=== PATIENT | female | born 1985 | race Caucasian/White ===

== ENCOUNTER 2021-08-21 10:34 | Emergency (ER) | payer BC, SELFPAY ==
--- NOTE | ~2021-08-21 | CT_ITS ---
EXAMINATION: CT abdomen pelvis wo con DATE: 08/21/2021 14:42 INDICATION: Left flank pain. TECHNIQUE: Computed tomography (CT) of the abdomen and pelvis was performed without intravenous contr ast. Automated exposure control and iterative reconstruction technique were employed. The dose-length product was 178.53 mGy-cm. COMPARISON: CT abdomen and pelvis 08/08/2021 FINDINGS: The visualized portions of the lung bases demonstrate a 5 mm nodule in right lower lobe, li marilee benign. No pleural effusion. The heart size is normal. No pericardial effusion. The liver, gallb ladder, spleen, pancreas, and adrenal glands are normal. There are 4 stones in right kidney measuring up to 6 mm. There are 5 stones in left kidney measuring up to 5 mm. There is moderate left hydroneph rosis and hydroureter. There is an 8 mm stone at left ureterovesicular junction. There are no dilated loops of bowel. The appendix is normal. There are no pathologically enlarged lymph nodes. There is n o free intraperitoneal fluid. There is a supraumbilical ventral hernia containing fat. There is a wid emouthed periumbilical ventral hernia containing a wall of nonobstructed colon. There is mild lumbar spondylosis. IMPRESSION: 1. 8 mm stone at left ureterovesicular junction with moderate left hydronephrosis and hydroureter. 2. Bilateral nonobstructing kidney stones. Reviewed, dictated and finalized at location A. ND HOST/HOSTESS IMPRESSION: 1. 8 mm stone at left ureterovesicular junction with moderate left hydronephros is and hydroureter. 2. Bilateral nonobstructing kidney stones.
--- NOTE | ~2021-08-21 | XR_ITS ---
EXAMINATION: XR abdomen/kub 1V DATE: 08/21/2021 13:31 INDICATION: Ureterolithiasis TECHNIQUE: A supine view of the abdomen was obtained. COMPARISON: 06/09/2012 FINDINGS: Bilateral nephrolithiasis with at least 4 stones the largest measuring up to 6 mm at the right kidney and at least 3 stones the largest measuring 3 mm at the left kidney. 7 mm ovoid calcification in the deep left hemipelvis which could represent a phlebolith, bladder stone or distal left ureteral stone . A couple unchanged slightly more caudal 1-2 mm phleboliths in the left hemipelvis. Unremarkable bow el gas pattern. IMPRESSION: 1. Bilateral nephrolithiasis and possible additional 7 mm stone either in the bladder or distal most left ureter. Reviewed, dictated and finalized at location B. AD RECEIVER IMPRESSION: 1. Bilateral nephrolithiasis and possible additional 7 mm stone either in the b ladder or distal most left ureter.
[2021-08-21 10:53] VITALS: BP 157/95; PULSE 100; RESP 18; TEMP 36.7; O2SAT 100
[2021-08-21 12:36] VITALS: BP 135/98; PULSE 95; RESP 16; TEMP 36.3; O2SAT 99
--- NOTE | 2021-08-21 13:19 | ED.FEMALEGU ---
HPI - Female Genitourinary General Chief complaint: Urogenital-Female Stated complaint: Rosana stone pain Time Seen by Provider: 08/21/21 12:43 Source: patient Mode of arrival: ambulatory Limitations: no limitations History of Present Illness HPI Narrative: This is a 35 year old female that presents to the ER for left flank pain ongoing for about 2 weeks. Reports she was diagnosed with a large ureteral stone at [facility]. Was told to follow-up with urology at [place]. She had an appointment for surgery to have the stone removed in 5 days. Reports her procedure was canceled. She also had an appointment with Dr. Alexander yesterday, but she canceled it before her lithotripsy was canceled. She has seen Dr. Alexander in the past for kidney stones. Reports over the last couple of days she has had chills, nausea, vomiting, dysuria. Denies fever or hematuria. Related Data Home Medications Medication Instructions Recorded Confirmed tamsulosin 0.4 mg PO DAILY 08/21/21 08/21/21 Allergies Allergy/AdvReac Type Severity Reaction Status Date / Time nifedipine Allergy Severe Dizziness Verified 08/21/21 15:39 nitrofurantoin Allergy hives Verified 08/21/21 15:39 penicillin G Allergy fever Verified 08/21/21 15:39 hydrocodone AdvReac Nausea and Verified 08/21/21 15:42 Vomiting Review of Systems Review of Systems: CONSTITUTIONAL: Denies fever GASTROINTESTINAL: Reports abdominal pain, nausea, vomiting GENITOURINARY: Reports dysuria. Denies hematuria. All systems reviewed & are unremarkable except as noted in HPI and below PMFSH Past Medical History Medical History (Updated 08/21/21 @ 16:51 by Rachel Hicks PA-C) Kidney stones Surgical History Surgical History (Updated 08/21/21 @ 16:01 by Belia Martin APRN) History of hysterectomy Social History Social History Smoking status: Never smoker Alcohol intake: current Alcohol use details: ONE DRINK PER MONTH Living arrangements: with family Spiritual care concerns: No Exam Narrative: GENERAL: Well-appearing, well-nourished, and in no acute distress. HEAD: Normocephalic, atraumatic. EYES: EOMI. CHEST: Clear to auscultation. No respiratory distress. No wheezes rales or rhonchi HEART: Regular rate and rhythm. No murmur heard. Normal peripheral pulses. ABDOMEN: Soft, nontender, nondistended, normal active bowel sounds. Left sided CVA tenderness EXTREMITIES: Normal range of motion. No edema. SKIN: Warm, dry, no rash. NEURO: No focal deficits. Alert and oriented x3. PSYCH: Normal mood and affect Course Consultations Consultation #1: Spoke with urology about patient work-up. If patient's pain is controlled may discharge home. Patient will be scheduled for procedure in the morning outpatient. Would like rapid COVID test ordered. Date: 08/21/21 Time: 15:00 Vital Signs Vital signs: Vital Signs Temperature 98.1 F 08/21/21 10:53 Pulse Rate 100 08/21/21 10:53 Respiratory Rate 18 08/21/21 10:53 Blood Pressure 157/95 H 08/21/21 10:53 Pulse Oximetry 100 08/21/21 10:53 Temperature 97.3 F L 08/21/21 12:36 Pulse Rate 95 08/21/21 12:36 Respiratory Rate 16 08/21/21 12:36 Blood Pressure 135/98 H 08/21/21 12:36 Pulse Oximetry 99 08/21/21 12:36 MDM - Female Genitourinary MDM Narrative Medical decision making narrative: Patient presents to the emergency department for left flank pain ongoing over the last couple weeks. Known history of large left ureteral stone. Was scheduled for an outpatient procedure with a [place] urologist. This was canceled. She presented today for worsening pain and vomiting. She is afebrile and nontoxic-appearing. CBC is without leukocytosis. Metabolic panel with evidence of some dehydration. Patient hydrated with IV fluids in the ED. UA without overt evidence of infection. This will be sent for culture. Lactic acid is not elevated.
[2021-08-21] MEDS: SODIUM CHLORIDE 0.9% IV 1,000 ML 999 ML IV CONT (13:40)
[2021-08-21] MEDS: ONDANSETRON INJ 4 MG/2 ML VIAL IV PUSH (13:46)
[2021-08-21 13:54] LABS: Basophils Absolute Auto 0.1 K/mm3 (0.0-0.1); Basophils Percent Auto 0.9 % (0.2-1.2); Eosinophils Absolute Auto 0.2 K/mm3 (0-0.3); Eosinophils Percent Auto 2.4 % (0-4.4); Hematocrit 41.4 % (37.0-47.0); Hemoglobin 13.9 g/dL (12.0-15.0); Immature Granulocyte Absolute 0.08 K/mm3 (0.00-0.031); Lymphocytes Absolute Auto 1.42 K/mm3 (0.9-3.2); Lymphocytes Percent Auto 17.8 % (18.3-44.2); Mean Corpuscular HGB Conc 33.6 g/dl (32-36); Mean Corpuscular Hemoglobin 28.1 pg (26-34); Mean Corpuscular Volume 83.8 fl (80-100); Mean Platelet Volume 10.4 fl (7.4-10.4); Monocytes Absolute Auto 0.4 K/mm3 (0.1-0.6); Monocytes Percent Auto 4.9 % (2.6-8.5); Neutrophils Absolute Auto 5.8 K/mm3 (1.3-6.7); Platelet Count Result 291 k/mm3 (150-375); Red Blood Count 4.94 M/mm3 (4.2-5.4); Red Cell Distribution Width 12.6 % (11.5-14.5)
[2021-08-21 14:04] LABS: Add Urine Microscopic? YES; Appearance Urine Clear (Clear); Bacteria Urine Trace /hpf; Bilirubin Urine Negative (Negative); Blood Urine 1+ (Negative); Color Urine Yellow (Yellow); Glucose Urine UA Negative (Negative); Ketones Urine Negative (Negative); Leukocyte Esterase Ur Negative LEU/UL (Negative); Nitrate Urine Negative (Negative); Protein Urine Negative (Negative); Specific Grav Ur 1.015 (1.001-1.035); Squamous Epithelial Cell Urine Moderate /hpf (Few); Urobilinogen Urine Negative mg/dL (<2.0)
[2021-08-21 14:11] LABS: Lactic Acid Reflex 0.7 mmol/L (0.7-2.1)
[2021-08-21 14:15] LABS: Anion Gap 12 mmol/L (8-16); Blood Urea Nitrogen 18 mg/dL (7-17); CRP 2.1 mg/dL (<1.0); Calcium 10.3 mg/dL (8.4-10.2); Carbon Dioxide 25 mmol/L (22-30); Chloride 100 mmol/L (98-107); Estimated CRCL calculation 42 ml/min; Estimated Glomerular Filt Rate 51; Glucose 96 mg/dL (65-110); Potassium 4.5 mmol/L (3.4-5.0); Sodium 137 mmol/L (137-145)
[2021-08-21] MEDS: MORPHINE SULFATE (*CRX) 2 MG/ML INJ IV PUSH (14:31)
[2021-08-21] MEDS: KETOROLAC 30 MG/ML VIAL (*BKC) IV PUSH (15:50)
[2021-08-21 17:20] VITALS: BP 116/80; PULSE 88; RESP 16; O2SAT 100
[2021-08-21 17:22] LABS: EDCOVIDSCREEN Negative (Negative)
== END 2021-08-21 17:20 | disposition home or self-care (01) ==
PROVIDERS: Physician Assistant; Emergency Provider Emergency Medicine; PCP Nurse Practitioner Family
DX: N13.2 Hydronephrosis with renal and ureteral calculous obstruction (principal); Z20.822 Contact with and (suspected) exposure to COVID-19
CPT/HCPCS: 36415; 74018; 74176; 80048; 81001; 81025; 83605; 85025; 86140; 87040; 87086; 87426; 96365; 96375; 99284; C9803; J0131; J1885; J2270; J2405; J7030

== ENCOUNTER 2021-08-22 01:33 | Day surgery (SDC) | payer BC, SELFPAY ==
--- NOTE | 2021-08-21 15:45 | WPDURCON ---
Assessment and Plan Assessment and plan (1) Kidney stones: Code(s): N20.0 - Calculus of kidney Status: Acute Assessment and Plan: No intervention at this time. Will plan lithotripsy in the future. (2) Left ureteral stone: Code(s): N20.1 - Calculus of ureter Status: Acute Assessment and Plan: Plan to do a cystoscopy, left ureteroscopy with stone extraction, possible left stent placement, left retrograde pyelogram, possible holmium laser tomorrow as an outpatient with Dr. Beck. Ok to discharge home with Torodol or Ibuprofen PRN tonight. NPO after midnight. Swab for rapid covid test today in preparation for surgery. Urology Consult Note HPI Date Seen: 08/21/21 Requesting Physician: Randal Beck MD Primary Care Provider: Belia Roche, [facility]- Consult Narrative Narrative: Narcisa Blanca is a 35 year old female who presented to the ER today for continued LLQ pain and left flank pain, dysuria, nausea and vomiting that started two weeks ago. She was diagnosed initially for an 8mm left UPJ stone that was seen on CT at [facility] in [place]. She then went to see a Urologist at [facility] who scheduled her for a lithotripsy on Wednesday next week. Unfortunately, d/t COVID restrictions, her lithotripsy was cancelled at [place]. Her pain then become worse overnight and she came back to the ER today. She is 16 weeks s/p delivery of her third child with a hysterectomy as well. She had a KUB here to confirm placement of stone, but it wasn't well identified. A CT scan was then done showing significant movement of the stone to the left UVJ. Her WBC is 8.0, creatinine is 1.20 and UA isn't suggestive of a UTI, but a culture was sent. She has a history of kidney stones and is a previous patient of Dr. Hickman from >5 years ago. She has non obstructive bilateral renal stones also seen on KUB/CT. Review of Systems Cardiovascular: Cardiovascular: Denies chest pain Respiratory: Respiratory: Reports no additional respiratory complaints Gastrointestinal: Gastrointestinal: Reports abdominal pain, Reports nausea and Reports vomiting Genitourinary: Genitourinary: Denies hematuria, Reports dysuria, Denies pelvic pain, Reports flank pain and Denies urinary urgency [facility] Past Medical History Medical History (Updated 08/21/21 @ 16:02 by Belia Martin APRN) Kidney stones Surgical History Surgical History (Updated 08/21/21 @ 16:01 by Belia Martin APRN) History of hysterectomy Social History Social History Smoking status: Never smoker Alcohol intake: current Alcohol use details: ONE DRINK PER MONTH Living arrangements: with family Spiritual care concerns: No Meds Home Medications and Allergies Home Medications Medication Instructions Recorded Confirmed Type tamsulosin 0.4 mg PO DAILY 08/21/21 08/21/21 History Allergies Allergy/AdvReac Type Severity Reaction Status Date / Time nifedipine Allergy Severe Dizziness Verified 08/21/21 15:39 nitrofurantoin Allergy hives Verified 08/21/21 15:39 penicillin G Allergy fever Verified 08/21/21 15:39 hydrocodone AdvReac Nausea and Verified 08/21/21 15:42 Vomiting Exam Resp: Effort & Inspection: normal respiratory effort Cardio: Rate: regular rate GI: GI Palp: Yes Soft to palpation and Yes Tenderness to palpation present (GI) (LLQ) : General: Yes CVA tenderness on the left Extrem: General: no edema
[2021-08-21 15:53] VITALS: BMI 25.7
--- NOTE | 2021-08-21 16:02 | PC.NURSE ---
Report to the Outpatient Waiting Room, entrance under the green pavilion located off [facility], at time ___914____ on date __08/22/21 . OR Time: __1114 . - You and your visitor will be asked a series of questions to screen for COVID 19 for your protection. - A mask is required within the hospital. - Only one visitor is allowed at this time. Patient visitors will be guided where to wait when not with patient. Preoperative COVID Testing Requirements: No COVID Test needed if: (proof is required; if not received patient will have Rapid Test prior to entry) - Patient has received COVID Vaccine at least 14 days prior to procedure date or - Patient has positive COVID test result within last 90 days of surgery date. COVID Test needed if above criteria is not met If not COVID vaccinated a COVID test must be conducted within 72 hours of surgery and patient is asked to isolate self from time of testing until procedure. You will go to the [facility] for your COVID testing. The [facility] site is located at the corner of [address] [facility]. You will only be called if COVID results are positive and your surgeon may reschedule your elective surgery date. Patients may have clear liquids (water, carbonated beverages, clear teas, apple juice) until 3 hours prior to surgery with a maximum of 20 ounces. - No food from midnight until time of surgery - Infants may have breast milk until 4 hours before surgery, infant formula 6 hours prior to surgery. - Children will be allowed to drink immediately following surgery. If applicable, please bring a bottle or sippy cup to assist with drinking. Juice, water, soda, and popsicles are readily available. For infants on formula, please bring formula the day of surgery. Pacifiers are allowed. Take the following medications with a SIP of water the morning of surgery: ___NONE Medications to discontinue per physician NONE Date to take last dose Please no make-up, nail costa rican, hairspray, perfume, deodorant, or body powder the day of surgery. No jewelry (including any body piercings) or valuables the day of surgery, leave them at home. Please take a shower or bath the night before, or the morning of, surgery with an antibacterial soap. Wear comfortable, loose fitting clothing. Children are encouraged to wear pajamas. - Jewelry must be removed prior to entering the operating room. Rings and piercings that are not removed may be cut off. - The hospital will not accept responsibility for valuables. - Please leave all valuables, including medications, at home the day of surgery. If you are going home after surgery, a licensed hazmat cdl driver must drive you home. - NO public transportation without another adult. - We recommend that an adult stay with you for 24 hours following discharge. - We also recommend that you do not drive, make important decision, drink alcoholic beverages, or take any drugs that were not prescribed by your health care provider for at least 24 hours after your discharge time. For Pediatric surgeries, we recommend two adults accompany the child home (only one inside the building at this time). Follow any additional instructions given to you from your surgeon. Telephone instructions given to _PATIENT and asked if any additional questions and then verbalized understanding. Patient advised to call surgeon office or pre surgery nurse liaison [phone] if any additional questions.
[2021-08-22] VITALS (8 sets, daily range): BP systolic 106–132; BP diastolic 70–86; PULSE 60–87; RESP 12–19; TEMP 36.1–37.1; O2SAT 98–100
--- NOTE | ~2021-08-22 | XR_ITS ---
EXAMINATION: XR retrograde pyelo w/stent LT DATE: 08/22/2021 12:17 INDICATION: Left ureteral stone TECHNIQUE: 9 fluoroscopic images of the abdomen and pelvis were obtained during procedure performed arron Beck. Radiologist was not present for the imaging or procedure. The amount of fluoroscopy vincent e used during this procedure was 0.9 minutes. COMPARISON: CT dated 08/21/21 FINDINGS: The stone at the left ureterovesicular junction is clearly visible on the initial income tax administrator image as is a second prominent stone at the mid right kidney. Subsequent images demonstrate cannulation of the lef t ureter with retrograde contrast injection into the proximal left ureter demonstrating persistent mi ld to moderate left hydronephrosis. Final image demonstrates placement of a left internal ureteral st ent with proximal tip within a lower pole calyx of the left kidney and with distal loop formed in the bladder. The stone previously seen at the ureterovesicular junction is no longer visible on the tia l images and has likely been extracted. IMPRESSION: 1. Extraction of a stone at the left ureterovesicular junction and placement of a left internal urete ral stent in expected position. Reviewed, dictated and finalized at location B. ENVIRONMENTAL ENGINEER IMPRESSION: 1. Extraction of a stone at the left ureterovesicular junction and placement of a left internal ureteral stent in expected position.
--- NOTE | 2021-08-22 06:49 | PM.HPGS ---
History of Present Illness History of Present Illness Consent: Risks, benefits, and alternatives have been discussed and questions answered. Patient agrees to proceed with procedure. Chief complaint: left ureteral stone Narrative: Narcisa Blanca is a 35 year old female who has had intermittent left flank pain for approximately 1 week. Reportedly outside imaging previously showed an 8 mm stone in her left proximal ureter. she was scheduled for ESWL in an outside facility next week but came to the ER at [facility] with intractable, recurrent left flank pain. Follow-up imaging showed the stone had progressed to her left UVJ. After discussion of options she has elected for left ureteroscopy with laser lithotripsy, stone extraction and possible stent placement. Review of Systems Cardiovascular: Cardiovascular: Denies chest pain, Denies lightheadedness, Denies palpitations and Denies dyspnea Respiratory: Respiratory: Denies dyspnea Gastrointestinal: Gastrointestinal: Denies diarrhea, Denies nausea and Denies vomiting Genitourinary: Genitourinary: Denies hematuria and Denies dysuria Endocrine: Endocrine: Denies palpitations [facility] Past Medical History Medical History Kidney stones Surgical History Surgical History History of hysterectomy Social History Social History Smoking status: Never smoker Alcohol intake: current Alcohol use details: ONE DRINK PER MONTH Living arrangements: with family Spiritual care concerns: No Meds Home Medications and Allergies Home Medications Medication Instructions Recorded Confirmed Type tamsulosin 0.4 mg PO DAILY 08/21/21 08/21/21 History Allergies Allergy/AdvReac Type Severity Reaction Status Date / Time nifedipine Allergy Severe Dizziness Verified 08/21/21 15:39 nitrofurantoin Allergy hives Verified 08/21/21 15:39 penicillin G Allergy fever Verified 08/21/21 15:39 hydrocodone AdvReac Nausea and Verified 08/21/21 15:42 Vomiting Exam Const: General: no acute distress Resp: Effort & Inspection: normal respiratory effort GI: Inspection: non-distended GI Palp: No abdominal tenderness and No Guarding due to palpation present (GI) Auscultation: normal bowel sounds Assessment and Plan Assessment and plan (1) Left ureteral stone: Code(s): N20.1 - Calculus of ureter Status: Acute Assessment and Plan: cystoscopy, left ureteroscopy with possible laser lithotripsy and stone extraction, possible left ureteral stent placement
--- NOTE | 2021-08-22 06:51 | WPDHPUPDATE1 ---
History and Physical Update Update Date/Time: 08/22/21 06:51 History and Physical has been reviewed, including an updated exam of the patient. There are NO changes in the patient's condition. Risks, benefits, and alternatives have been discussed and questions answered. Patient agrees to proceed with procedure.
[2021-08-22] MEDS: LACTATED RINGERS 1,000 ML 30 ML IV CONT ×2 (10:19→12:43)
--- NOTE | 2021-08-22 11:17 | WPDANESEPPF ---
Anes - Initial Pre Proc Eval Procedure: Operation Date: 08/22/21 11:15 Proposed Procedures p Cystoscopy, Left Ureteroscopy, Left Retrograde Pyelogram, Left Stone Extraction, Possible Left Stent Placement, - Randal Beck MD s Possible Holmium Laser Procedure - Randal Beck MD Date/Time: 08/22/21 11:17 Surgeon: Randal Beck MD Pre Op Diagnosis: left ureteral stone Patient Data Age: 35 Gender: F Height: 1.52 m Weight: 59.2 kg Last Vital Signs Temp 37.1 C 08/22/21 09:26 Pulse 83 08/22/21 09:26 Resp 16 08/22/21 09:26 BP 132/74 08/22/21 09:26 Pulse Ox 100 08/22/21 09:26 Allergies Allergy/AdvReac Type Severity Reaction Status Date / Time nifedipine Allergy Severe Unknown Verified 08/22/21 09:53 nitrofurantoin Allergy Intermediate hives Verified 08/22/21 09:53 penicillin G Allergy Intermediate Hives Verified 08/22/21 09:53 Home Medications Medication Instructions Recorded Confirmed Type tamsulosin 0.4 mg PO DAILY 08/21/21 08/22/21 History Patient hx anesthesia problems: post op nausea/vomiting Family hx anesthesia problems: none Results Review: All pre-operative results and documents have been reviewed as part of the pre-operative evaluation. [facility] Past Medical History Medical History Kidney stones Surgical History Surgical History History of hysterectomy Social History Social History Smoking status: Never smoker Alcohol intake: current Alcohol use details: ONE DRINK PER MONTH Living arrangements: with family Spiritual care concerns: No Anes - Eval Final PreProcedure Day of Procedure 08/22/21 11:17 Patient weight: normal Heart: regular rate and rhythm Lungs: clear to auscultation Airway: Mallampati scale class II Neurological: alert and oriented Last oral intake: >/= 8 hours ASA classification: I Emergent: no Anesthetic plan: proceed Anesthesia type and monitoring: general LMA and standard monitoring Results Review: All pre-operative results and documents have been reviewed as part of the pre-operative evaluation. Informed Consent: The patient's anesthetic plan and its attendant risks and benefits were discussed with the patient/family/POA. Questions were solicited and answers provided to the satisfaction of the patient/family/POA.
[2021-08-22] MEDS: SCOPOLAMINE 1.5 MG PATCH TRANSDERM (11:30)
[2021-08-22] MEDS: ceFAZolin 2 GM/D5W 50 ML 2 GM/50 ML BAG IVPB (11:35)
[2021-08-22] MEDS: LIDOCAINE HCL 2% GEL UROJET 10 ML PKG MUCOUS MEM (11:59)
--- NOTE | 2021-08-22 12:15 | W.PM.PROC2 ---
Procedure Note - Detailed Date of Procedure 08/22/21 Pre-op Diagnosis Lleft ureteral stone Post-op Diagnosis same Procedure Performed Cystoscopy, left ureteroscopy with laser lithotripsy stone, stone extraction and stent placement Surgeon Randal Beck MD Anesthesia general Description of Procedure The patient was brought to the operative suite where she is prepped and draped in a routine sterile fashion while in the dorsal lithotomy position after the uneventful induction of a general LMA anesthetic. A 19F rigid cystoscope was placed in the bladder. The patient had no evidence of urethral stricture or bladder neck contracture. The bladder mucosa was endoscopically normal without hyperemia or neoplasm. There was a single, orthotopic ureteral orifice bilaterally. A 0.035 glidewire was advanced into the left renal pelvis under fluoroscopy. The distal ureter was dilated with an 8F/10F ureteral dilator. Ureteroscopy was undertaken with a short tapered semi-rigid ureteroscope. With ureteroscopy I fractured the stone into smaller pieces using a 273micron Holmium laser fiber with the Holmium laser. I was able to then extract the stone pieces using a 1.9F Escape, disposable stone basket. Due to the extent of this manipulation I did place a 4.8F double-J ureteral stent. The proximal coil of the stent was confirmed to be in the renal pelvis and the distal coil in the bladder. The patient's bladder was emptied and he was taken to the recovery room having tolerated this procedure well. Drains Yes Packing No Pathology yes Complications No immediate complications Condition stable Disposition PACU
[2021-08-22] MEDS: fentaNYL CITRATE INJ (*CRX) 100 MCG/2 ML VIAL 25 MCG IV PUSH (13:14)
== END 2021-08-22 14:25 | disposition home or self-care (01) ==
PROVIDERS: PCP Nurse Practitioner Family; Visit Provider Urology
PROC: (CPT 52352; principal; 2021-08-22 11:15)
PROC: (CPT 52356; 2021-08-22 11:15)
DX: N20.1 Calculus of ureter (principal)
CPT/HCPCS: 52356; 74420; 82365; 88300; A9270; C1769; C2617; J0690; J1100; J2250; J2405; J2704; J3010; J7120; Q9966

== ENCOUNTER → 2021-12-27 00:14 | Outpatient (CLI) | payer BC, SELFPAY ==
[2021-12-27 13:50] LABS: SARS-CoV-2 RNA PCR Negative
== END ==
DX: Z01.812 Encounter for preprocedural laboratory examination (principal); Z20.822 Contact with and (suspected) exposure to COVID-19
CPT/HCPCS: C9803; U0003; U0005

== ENCOUNTER 2022-01-06 11:23 | Emergency (ER) | payer BC, SELFPAY ==
[2022-01-06 11:30] VITALS: BP 124/89; PULSE 80; RESP 16; TEMP 36.4; O2SAT 100
--- NOTE | 2022-01-06 11:45 | ED.DIZZY ---
HPI - Dizziness General Chief Complaint: Dizziness Stated Complaint: dizzy and lightheaded Time Seen by Provider: 01/06/22 11:27 Source: patient Mode of arrival: ambulatory Limitations: no limitations History of Present Illness HPI Narrative: 36-year-old female presents to [facility] with complaints of intermittent dizziness for the past 3 days. Patient was a dizziness is worse upon sitting up in bed, standing and quick movements. Patient reports that she feels like the room is spinning. Patient denies chest pain or shortness of breath. Patient denies ear pain, cough or shortness of breath. Patient's not tried taking any [id number] medications for her symptoms. Patient reports that she did have kidney stone surgery approximate 1 week ago and did remove the stents. MD elicited complaint: dizziness Onset (ago): day(s) (3) Exacerbating factors: nothing Relieving factors: nothing Associated symptoms: nausea Related Data Allergies Allergy/AdvReac Type Severity Reaction Status Date / Time nifedipine Allergy Severe Unknown Verified 08/22/21 09:53 nitrofurantoin Allergy Intermediate hives Verified 08/22/21 09:53 penicillin G Allergy Intermediate Hives Verified 08/22/21 09:53 Review of Systems Constitutional: Constitutional: Denies chills, Denies fatigue, Denies fever(s) and Denies weakness ENT: Reports vertigo and Reports dizziness Cardiovascular: Cardiovascular: Denies chest pain and Denies rapid heart rate Respiratory: Respiratory: Denies cough, Denies dyspnea and Denies wheezing Gastrointestinal: Gastrointestinal: Denies abdominal pain, Denies nausea and Denies vomiting Musculoskeletal: Musculoskeletal: Denies arthralgias Integumentary/Breasts: Skin/Breast: Denies pruritus Endocrine: Endocrine: Denies fatigue [facility] Past Medical History Medical History Kidney stones Surgical History Surgical History History of hysterectomy Social History Social History Smoking status: Never smoker Alcohol intake: current Alcohol use details: ONE DRINK PER MONTH Gender identity (if verbalized by the patient): Female Sexual Orientation (if Verbalized by the Patient): Straight or Heterosexual Spiritual care concerns: No Comments At time of signature, I agree with nursing past medical, surgical, social and family history. There is no relevant family history pertinent to the presenting complaint. Exam Const: General: healthy appearing and no acute distress Nutritional Appearance: well nourished Orientation/consciousness: patient oriented x3 Limitations: no limitations HENMT: Head: normal to inspection General nose exam: Normal external nose present Face and sinus: normal facial exam Mouth: Yes Normal oral and palatal mucosa present Teeth and gingiva: dentition normal Throat: posterior oropharynx normal Other: Mild clear fluid noted to bilateral TMs. No erythema noted. Neck: Neck: normal visual inspection Chest: Chest palpation & inspection: normal inspection of the chest Resp: Effort & Inspection: normal respiratory effort Auscultation: clear to auscultation bilaterally Cardio: Rate: regular rate Rhythm: regular rhythm Skin: General skin exam: normal color Rashes: no rashes Wounds: no wounds Neuro: General: patient oriented x3 and moves all extremities Speech: normal speech Psych: Mental Status: mental status grossly normal Affect: normal affect Attitude: cooperative Course Course Level of Care: Express Care Visit Vital Signs Vital signs: Vital Signs Temperature 36.4 C L 01/06/22 11:30 Pulse Rate 80 01/06/22 11:30 Respiratory Rate 16 01/06/22 11:30 Blood Pressure 124/89 01/06/22 11:30 Pulse Oximetry 100 01/06/22 11:30 Oxygen Delivery Room Air 01/06/22 11:30 Temperature 36.4 C L 01/06/22 11
== END 2022-01-06 12:01 | disposition home or self-care (01) ==
PROVIDERS: Emergency Provider Nurse Practitioner Family
DX: R42 Dizziness and giddiness (principal)
CPT/HCPCS: 99213; G0463

== ENCOUNTER 2023-02-12 16:43 | Emergency (ER) | payer BC, SELFPAY ==
[2023-02-12 17:04] VITALS: BP 129/96; PULSE 83; RESP 18; TEMP 37; O2SAT 100
--- NOTE | 2023-02-12 17:07 | ED.SKABFB ---
HPI - Skin/Abscess/Foreign Bdy General Chief complaint: Skin/Abscess/Foreign Body Stated complaint: Rash Time Seen by Provider: 02/12/23 17:05 Source: patient, RN notes reviewed and old records reviewed Mode of arrival: ambulatory Limitations: no limitations History of Present Illness HPI narrative: 37-year-old female who presents to [facility] with complaints of poison oak which is generalized on body with rash noted also on face with no eye swelling noted. Patient received a Medrol Dosepak which was ordered form her PCP and completed then 2 days later rash reappeared. Patient reports that she has not had any difficulty with her breathing or with swallowing, has taken some Benadryl for her itching. Patient reports that she has some oozing from vesicles noted on left inner wrist. MD complaint: rash Onset (ago): day(s) (started 02/04/2023) Location: generalized Quality: pruritic Treatments prior to arrival: other (Medrol dose pack, Benadryl) Related Data Allergies Allergy/AdvReac Type Severity Reaction Status Date / Time nifedipine Allergy Severe Unknown Verified 02/12/23 17:02 nitrofurantoin Allergy Intermediate hives Verified 02/12/23 17:02 penicillin G Allergy Intermediate Hives Verified 02/12/23 17:02 Review of Systems Review of Systems: CONSTITUTIONAL: Denies fever, chills, or sweats. CARDIOVASCULAR: Denies chest pain, palpitations, or edema. RESPIRATORY: Denies cough or dyspnea. SKIN: Reports generalized rash to body from exposure to poisonous plant MUSCULOSKELETAL: Denies joint pain or myalgia. NEUROLOGIC: Denies headache, numbness, or weakness. All systems reviewed & are unremarkable except as noted in HPI and below PMFSH Past Medical History Medical History (Updated 02/13/23 @ 23:15 by Griselda Marley NP) Kidney stones Surgical History Surgical History (Updated 02/13/23 @ 23:11 by Griselda Marley NP) History of hysterectomy Previous section x2 Social History Social History Smoking status: Never smoker Alcohol intake: current Alcohol use details: ONE DRINK PER MONTH Living arrangements: with family Gender identity (if verbalized by the patient): Female Sexual Orientation (if Verbalized by the Patient): Straight or Heterosexual Spiritual care concerns: No Comments At time of signature, agree with nursing past medical, surgical, social and family history. There is no relevant family history pertinent to the presenting complaint Exam Narrative: GENERAL: Well-appearing, well-nourished, and in mild acute distress. HEAD: Normocephalic, atraumatic. EYES: PERRLA, conjunctivae clear, and EOMI. ENT: Mucous membranes moist. Oropharynx without edema, erythema or lesions. NECK: Supple. No lymphadenopathy CHEST: Clear to auscultation. No respiratory distress.SAO2 100% on room air HEART: Regular rate and rhythm. SKIN: Warm, dry.? generalized body rash with patches of redness and some vesicle formation itchy NEURO:? Alert and oriented x3. PSYCH: Normal mood and affect Course Course Emergency Course: Patient is aware of diagnosis, understands and agrees to treatment plan.? Anticipatory guidance given.? Patient agrees to follow-up as directed and is aware of reasons to seek care at the emergency department. Portions of this record may have been created with voice recognition software Level of Care: Express Care Visit Vital Signs Vital signs: Vital Signs Temperature 37.0 C 02/12/23 17:04 Pulse Rate 83 02/12/23 17:04 Respiratory Rate 18 02/12/23 17:04 Blood Pressure 129/96 H 02/12/23 17:04 Pulse Oximetry 100 02/12/23 17:04 Oxygen Delivery Room Air 02/12/23 17:04 Temperature 37.0 C 02/12/23 17:04 Pulse Rate 83 02/12/23 17:04 Respiratory Rate 18 02/12/23 17:04 Blood Pressure 129/96 H 02/12/23 17:04 Pulse Oximetry 100 02/12/23 17:04 Oxygen Delivery Room Air
[2023-02-12] MEDS: methylPREDNISolone ACETATE 80 MG/ML VIAL IM (17:27)
== END 2023-02-12 18:10 | disposition home or self-care (01) ==
PROVIDERS: Emergency Provider Registered Nurse; PCP Nurse Practitioner Family
DX: L23.7 Allergic contact dermatitis due to plants, except food (principal)
CPT/HCPCS: 96372; 99213; G0463; J1040